=== PATIENT | female | born 1990 | race Hispanic/Latino ===

== ENCOUNTER 2020-02-16 13:00 | Emergency (ER) | payer SELFPAY ==
[2020-02-16] MEDS ORDERED: Lidocaine 1% 20 ML MDV ONE (13:21)
[2020-02-16] MEDS ORDERED: Boostrix 0.5 ML (Tdap) VIAL ONE (13:45)
== END 2020-02-16 14:09 | disposition home or self-care (01) ==
LOC: MADERS 13:00
DX: S61.012A Laceration without foreign body of left thumb without damage to nail, initial encounter (principal); W26.0XXA Contact with knife, initial encounter
CPT/HCPCS: 12001; 90471; 90715